=== PATIENT | female | born 1965 | race Caucasian/White ===

== ENCOUNTER 2017-03-04 02:05 | Emergency (ER) | payer BC ==
[~2017-03-04] VITALS: Ht 170.2 cm; Wt 70.0 kg
[2017-03-04 02:07] VITALS: BP 162/80; PULSE 83; RESP 16; TEMP 98.2; O2SAT 99
[2017-03-04] MEDS ORDERED: ONDANSETRON ODT 4 MG TAB PO ONE (02:15)
[2017-03-04] MEDS ORDERED: ZOFR4TAB3 SL (03:01)
--- NOTE | 2017-03-04 03:01 | PD ---
HPI Chief Complaint: GI Complaint Time Seen by Provider: 02:15 Travel History International Travel<30 days: No Contact w/Intl Traveler<30days: No Traveled to known affect area: No History of Present Illness HPI So 52 year-old woman presents emergent from complaining of an hour and a half to 2 hours of nausea and vomiting following heavy alcohol use. Patient's down is a [place] for the [employer] festival. States she drank too much tonight on an empty stomach without drink a lot of water and also having a lot of vomiting. She otherwise has been feeling well. Denies any other complaints. History Past Medical History Medical History: Denies Significant Hx Tetanus Vaccination: < 5 Years LMP: 02/21/2017 Past Surgical History Surgical History: No Previous Surgery Social History Alcohol Use: Yes (glass of wine daily) Tobacco Use: No Allergies-Medications (Allergen,Severity, Reaction): Coded Allergies: No Known Allergies (Unverified , 03/04/17) Reported Meds & Prescriptions Reported Meds & Active Scripts Active Zofran Odt (Ondansetron Odt) 4 Mg Tab 4 Mg SL Q8HR PRN Review of Systems Except as stated in HPI: all other systems reviewed are Neg Physical Exam Narrative GENERAL: Well-appearing 52 year-old woman, no acute distress. SKIN: Focused skin assessment warm/dry. CARDIOVASCULAR: Regular rate and rhythm. No murmur appreciated. RESPIRATORY: No accessory muscle use. Clear to auscultation. Breath sounds equal bilaterally. GASTROINTESTINAL: Abdomen soft, non-tender, nondistended. Hepatic and splenic margins not palpable. MUSCULOSKELETAL: No obvious deformities. No edema. NEUROLOGICAL: Awake and alert. No obvious cranial nerve deficits. Motor grossly within normal limits. Normal speech. PSYCHIATRIC: Appropriate mood and affect; insight and judgment normal. Data Data Last Documented VS Vital Signs Date Time Temp Pulse Resp B/P (MAP) Pulse Ox O2 Delivery O2 Flow Rate FiO2 03/04/17 02:07 98.2 83 16 162/80 (107) 99 Room Air Orders Orders Ondansetron Odt (Zofran Odt) (03/04/17 02:15) [facility] Medical Decision Making Medical Screen Exam Complete: Yes Emergency Medical Condition: Yes Differential Diagnosis Nausea vomiting, intoxication, other Narrative Course Medical decision making 50 over presents emergency Department with nausea and vomiting associated with alcohol use. She looks generally well. We will give her some ODT Zofran. Recommend by mouth hydration. Diagnosis Primary Impression: Nausea & vomiting Additional Instructions: Use Zofran as needed for nausea or vomiting. Drink plenty fluids stay well-hydrated. Return to the emergency department for any new or worsening symptoms. Med/Other Pt SpecificInfo: Prescription(s) given Scripts Ondansetron Odt (Zofran Odt) 4 Mg Tab 4 MG SL Q8HR Y for Nausea/Vomiting, #12 TAB 0 Refills Prov: Cuco Curtis MD 03/04/17 Disposition: 01 DISCHARGE HOME Condition: Stable Cuco Curtis MD Mar 04, 2017 03:01
[2017-03-04 03:48] VITALS: BP 150/78
== END 2017-03-04 03:59 | disposition home or self-care (01) ==
LOC: NEPE 02:05
DX: R11.2 Nausea with vomiting, unspecified (principal)
CPT/HCPCS: 99283